=== PATIENT | male | born 1955 | race African-American/Black ===

== ENCOUNTER 2016-11-26 04:47 | Emergency (ER) | payer MEDICAID ==
[2016-11-26] MEDS ORDERED: SULFAMETHOXAZOLE/TRIMETHOPRIM 800-160 MG TABLET PO ONE (06:38)
[2016-11-26] MEDS ORDERED: PREDNISONE 20 MG TABLET PO ONE (06:38)
[2016-11-26] MEDS ORDERED: CEPHALEXIN 500 MG CAPSULE PO ONE (06:38)
--- NOTE | 2016-11-26 06:40 | ER Document Report ---
ED General - General Chief Complaint: Allergic Reaction Stated Complaint: POSSIBLE RASH Time Seen by Provider: 11/26/16 06:07 Mode of Arrival: Ambulatory Information source: Patient Notes: 61-year-old male presents with complaints of rash to face and the right leg. Patient notes he has a history of eczema and has been scratching at it. Now he notes over the past few days that there has been crusty martinez this from around the face lips. Patient denies any fevers or chills TRAVEL OUTSIDE OF THE [place] IN LAST 30 DAYS: No - HPI Onset: Just prior to arrival Onset/Duration: Sudden Quality of pain: No pain Severity: Mild Pain Level: Denies Associated symptoms: Other Exacerbated by: Denies Relieved by: Denies Similar symptoms previously: No Recently seen / treated by doctor: No - Related Data Allergies/Adverse Reactions: No Known Allergies Allergy (Unverified 11/26/16 04:56) Past Medical History - Social History Smoking Status: Never Smoker Cigarette use (# per day): No Chew tobacco use (# tins/day): No Smoking Education Provided: No Family History: Reviewed & Not Pertinent Patient has suicidal ideation: No Patient has homicidal ideation: No - Past Medical History Cardiac Medical History: Reports: Hx Hypertension Renal/ Medical History: Denies: Hx Peritoneal Dialysis Past Surgical History: Reports: Hx Cardiac Surgery - bypass Review of Systems - Review of Systems Notes: REVIEW OF SYSTEMS: CONSTITUTIONAL : Denies fever, chills, or sweats. Denies recent illness. EENT: Denies eye, ear, throat, or mouth pain or symptoms. Denies nasal or sinus congestion or discharge. Denies throat, tongue, or mouth swelling or difficulty swallowing. CARDIOVASCULAR: Denies chest pain. Denies palpitations or racing or irregular heart beat. Denies ankle edema. RESPIRATORY: Denies cough, cold, or chest congestion. Denies shortness of breath, difficulty breathing, or wheezing. GASTROINTESTINAL: Denies abdominal pain or distention. Denies nausea, vomiting , or diarrhea. Denies blood in vomitus, stools, or per rectum. Denies black, tarry stools. Denies constipation. GENITOURINARY: Denies difficulty urinating, painful urination, burning, frequency, blood in urine, or discharge. MUSCULOSKELETAL: Denies back or neck pain or stiffness. Denies joint pain or swelling. SKIN: Admits to rash HEMATOLOGIC : Denies easy bruising or bleeding. LYMPHATIC: Denies swollen, enlarged glands. NEUROLOGICAL: Denies confusion or altered mental status. Denies passing out or loss of consciousness. Denies dizziness or lightheadedness. Denies headache. Denies weakness or paralysis or loss of use of either side. Denies problems with gait or speech. Denies sensory loss, numbness, or tingling. Denies seizures. PSYCHIATRIC: Denies anxiety or stress. Denies depression, suicidal ideation, or homicidal ideation. ALL OTHER SYSTEMS REVIEWED AND NEGATIVE. Dictation was performed using [employer] recognition software PHYSICAL EXAMINATION: GENERAL: Well-appearing, well-nourished and in no acute distress. HEAD: Atraumatic, normocephalic. EYES: Pupils equal round and reactive to light, extraocular movements intact, sclera anicteric, conjunctiva are normal. ENT: Nares patent, oropharynx clear without exudates. Moist mucous membranes. NECK: Normal range of motion, supple without lymphadenopathy LUNGS: Breath sounds clear to auscultation bilaterally and equal. No wheezes rales or rhonchi. HEART: Regular rate and rhythm without murmurs ABDOMEN: Soft, nontender, nondistended abdomen. No guarding, no rebound. No masses appreciated. Musculoskeletal: Normal range of motion, no pitting or edema. No cyanosis. NEUROLOGICAL: Cranial nerves grossly intact. Normal speech, normal gait. Normal sensory, motor exams PSYCH: Normal mood, normal affect. SKIN: martinez crusted rash on face , right anterior leg Physical Exam - Vital signs Vitals: Temp Pulse Resp BP Pulse Ox 98.1 F 85 18 148/117 H 98 11/26/16 04:52 11/26/16 04:52 11/26/16 04:52 11/26/16 04:52 11/26/16 04:52 Course - Re-evaluation Re-evalutation: 11/26/16 11:05 Patient has obvious staph rash, will be started on antibiotics otherwise well- appearing no distress Patient was also being treated for his eczema which I believe he has been scratching and causing infectious process After performing a Medical Screening Examination, I estimate there is LOW risk for OPEN FRACTURE, COMPARTMENT SYNDROME, TENDON RUPTURE, ACUTE NEUROVASCULAR INJURY, or RETAINED FOREIGN BODY, thus I consider the discharge disposition reasonable. Also, there is no evidence or peritonitis, sepsis, or toxicity. I have reevaluated this patient multiple times and no significant life threatening changes are noted. The patient and I have discussed the diagnosis and risks, and we agree with discharging home with close follow-up with the understanding that symptoms and presentations can change. We also discussed returning to the Emergency Department immediately if new or worsening symptoms occur. We have discussed the symptoms which are most concerning (e.g., changing or worsening pain, fever, numbness, weakness, cool or painful digits) that necessitate immediate return. - Vital Signs Vital signs: Temp Pulse Resp BP Pulse Ox 98.8 F 87 16 151/100 H 99 11/26/16 07:03 11/26/16 07:03 11/26/16 07:03 11/26/16 07:03 11/26/16 07:03 Discharge - Discharge Clinical Impression: Cellulitis Qualifiers: Site of cellulitis: face Qualified Code(s): L03.211 - Cellulitis of face Eczema Qualifiers: Eczema type: unspecified Qualified Code(s): L30.9 - Dermatitis, unspecified Condition: Stable Disposition: HOME, SELF-CARE Instructions: Cellulitis ([facility]) Additional Instructions: Please follow up with your pcp in 1-2 days for reevaluation or return immediately if there are any other concerns Prescriptions: Cephalexin Monohydrate [Keflex 500 mg Capsule] 500 mg PO QID #40 capsule Prednisone 60 mg PO DAILY 5 Days tablet Sulfamethoxazole/Trimethoprim [Bactrim Ds Tablet] 2 each PO BID 10 Days tablet
[2016-11-26 07:04] VITALS: BP 151/100
== END 2016-11-26 07:05 | disposition home or self-care (01) ==
LOC: ER 04:47
DX: L03.211 Cellulitis of face (principal); L30.9 Dermatitis, unspecified; I10 Essential (primary) hypertension; Z95.1 Presence of aortocoronary bypass graft
CPT/HCPCS: 99283; J7512

== ENCOUNTER 2016-12-07 15:54 | Emergency (ER) | payer MEDICAID ==
[2016-12-07] MEDS ORDERED: ASPIRIN 81 MG TABLET, CHEWABLE PO ONE ×2 (16:34→20:00)
--- NOTE | 2016-12-07 16:35 | ER Document Report ---
ED Medical Screen (RME) - General Chief Complaint: Chest Pain Stated Complaint: CHEST PAIN Time Seen by Provider: 12/07/16 16:33 Notes: Patient reports 1 day of intermittent chest pain. He states the pain lasted 15- 20 minutes at a time. No current pain. He states he does have a history of open heart surgery about 5 years ago. He states he does not take an aspirin a day. He states he still smokes and drinks. TRAVEL OUTSIDE OF THE [place] IN LAST 30 DAYS: No - Related Data Allergies/Adverse Reactions: No Known Allergies Allergy (Unverified 11/26/16 04:56) Past Medical History - Past Medical History Cardiac Medical History: Reports: Hx Hypertension Renal/ Medical History: Denies: Hx Peritoneal Dialysis Past Surgical History: Reports: Hx Cardiac Surgery - bypass Physical Exam - Vital signs Vitals: Temp Pulse Resp BP Pulse Ox 98.5 F 71 18 166/108 H 98 12/07/16 16:08 12/07/16 16:08 12/07/16 16:08 12/07/16 16:08 12/07/16 16:08 Course - Vital Signs Vital signs: Temp Pulse Resp BP Pulse Ox 98.5 F 71 18 166/108 H 98 12/07/16 16:08 12/07/16 16:08 12/07/16 16:08 12/07/16 16:08 12/07/16 16:08
[2016-12-07 17:10] LABS: ABSOLUTE BASOPHILS # (AUTO) 0.1 10^3/uL (0.0-0.2); ABSOLUTE EOSINOPHILS # (AUTO) 0.1 10^3/uL (0.0-0.6); ABSOLUTE LYMPHOCYTES (AUTO) 2.3 10^3/uL (0.5-4.7); ABSOLUTE MONOCYTES (AUTO) 0.8 10^3/uL (0.1-1.4); ABSOLUTE NEUT (AUTO) 3.1 10^3/uL (1.7-8.2); BASOPHILS % (AUTO) 1.1 % (0-2); EOSINOPHILS % (AUTO) 1.8 % (0-6); HEMATOCRIT 40.9 % (37.9-51.0); HEMOGLOBIN 13.8 g/dL (13.5-17.0); HGB HCT DIFFERENCE 0.5; LYMPHOCYTES % (AUTO) 35.6 % (13-45); MEAN CORPUSCULAR HEMOGLOBIN 27.1 pg (27.0-33.4); MEAN CORPUSCULAR HGB CONC 33.8 g/dL (32.0-36.0); MEAN CORPUSCULAR VOLUME 80 fl (80-97); MONOCYTES % (AUTO) 12.9 % (3-13); RED CELL DISTRIBUTION WIDTH 15.6 % (11.5-14.0); SEGMENTED NEUTROPHILS % (AUTO) 48.6 % (42-78); WHITE BLOOD COUNT 6.4 10^3/uL (4.0-10.5)
--- NOTE | 2016-12-07 17:31 | RADIOLOGY REPORT (SQ) ---
EXAM DESCRIPTION: CHEST PA/LAT COMPLETED DATE/TIME: 12/07/2016 5:20 pm REASON FOR STUDY: cp COMPARISON: None. EXAM PARAMETERS: NUMBER OF VIEWS: two views TECHNIQUE: Digital Frontal and Lateral radiographic views of the chest acquired. RADIATION DOSE: NA LIMITATIONS: none FINDINGS: LUNGS AND PLEURA: No opacities, masses or pneumothorax. No pleural effusion. MEDIASTINUM AND HILAR STRUCTURES: No masses or contour abnormalities. HEART AND VASCULAR STRUCTURES: Heart normal size. No evidence for failure. BONES: No acute findings. HARDWARE: Sternotomy wires. Heart valve. OTHER: No other significant finding. IMPRESSION: NO SIGNIFICANT RADIOGRAPHIC FINDING IN THE CHEST. TECHNICAL DOCUMENTATION: JOB ID: [id number] [employer]- All Rights Reserved
[2016-12-07 17:37] LABS: ALANINE AMINOTRANSFERASE 53 U/L (21-72); ALBUMIN 4.6 g/dL (3.5-5.0); ALKALINE PHOSPHATASE 76 U/L (38-126); ANION GAP 14 (5-19); ASPARTATE AMINO TRANSFERASE 33 U/L (17-59); BILIRUBIN,DIRECT 0.3 mg/dL (0.0-0.4); BILIRUBIN,TOTAL 0.3 mg/dL (0.2-1.3); BLOOD UREA NITROGEN 15 mg/dL (7-20); CALCIUM 9.8 mg/dL (8.4-10.2); CARBON DIOXIDE 26 mmol/L (22-30); CHLORIDE 100 mmol/L (98-107); CREATININE RESULT 1.44 mg/dL (0.52-1.25); GLUCOSE 93 mg/dL (75-110); POTASSIUM 4.8 mmol/L (3.6-5.0); SODIUM 139.9 mmol/L (137-145); TOTAL PROTEIN 7.4 g/dL (6.3-8.2)
[2016-12-07] MEDS ORDERED: ATORVASTATIN CALCIUM 80 MG TABLET PO ONE (20:25)
[2016-12-07] MEDS ORDERED: NITROGLYCERIN 0.4 MG/TAB 25 TAB/BOTTLE SL PRN (20:25)
--- NOTE | 2016-12-07 20:29 | ER Document Report ---
ED General - General Chief Complaint: Chest Pain Stated Complaint: CHEST PAIN Time Seen by Provider: 12/07/16 16:33 Notes: Patient is a 61-year-old male with a past medical history of coronary artery disease status post 3 stents as well as a coronary bypass, hypertension, hyperlipidemia, active tobacco use, who presents with 24 hours of intermittent chest pain. He does describe this as a retrosternal chest pain that is a pressure-like sensation that lasts for approximately 20-30 minutes. This pain is associated with shortness of breath, diaphoresis and he vomits each time it occurs. Nothing seems to trigger the pain and it does resolve on its own. States that this pain does feel somewhat similar to when he had to have stents placed in the past. He does admit that the only medications he is currently taking are for high blood pressure and he has not been taking aspirin, statins, or any other prior medications that he was taking prior to moving to the [facility] ER. He has not seen his primary care doctor regarding today's concerns. He denies any chest pain at time of my assessment. TRAVEL OUTSIDE OF THE [place] IN LAST 30 DAYS: No - Related Data Allergies/Adverse Reactions: No Known Allergies Allergy (Unverified 11/26/16 04:56) Past Medical History - General Information source: Patient - Social History Smoking Status: Current Every Day Smoker Frequency of alcohol use: Social Drug Abuse: None Lives with: Family Family History: Reviewed & Not Pertinent Patient has suicidal ideation: No Patient has homicidal ideation: No - Past Medical History Cardiac Medical History: Reports: Hx Hypertension Renal/ Medical History: Denies: Hx Peritoneal Dialysis Past Surgical History: Reports: Hx Cardiac Surgery - bypass Review of Systems - Review of Systems Notes: Constitutional: Negative for fever. HENT: Negative for sore throat. Eyes: Negative for visual changes. Cardiovascular: Positive for chest pain. Respiratory: Positive for shortness of breath. Gastrointestinal: Negative for abdominal pain, positive for vomiting. Genitourinary: Negative for dysuria. Musculoskeletal: Negative for back pain. Skin: Negative for rash. Neurological: Negative for headaches, weakness or numbness. 10 point ROS negative except as marked above and in HPI. Physical Exam - Vital signs Vitals: Temp Pulse Resp BP Pulse Ox 98.5 F 71 18 166/108 H 98 12/07/16 16:08 12/07/16 16:08 12/07/16 16:08 12/07/16 16:08 12/07/16 16:08 Interpretation: Hypertensive Notes: PHYSICAL EXAMINATION: GENERAL: Well-appearing, well-nourished and in no acute distress. HEAD: Atraumatic, normocephalic. EYES: Pupils equal round and reactive to light, extraocular movements intact, sclera anicteric, conjunctiva are normal. ENT: nares patent, oropharynx clear without exudates. Moist mucous membranes. NECK: Normal range of motion, supple without lymphadenopathy LUNGS: Breath sounds clear to auscultation bilaterally and equal. No wheezes rales or rhonchi. HEART: Regular rate and rhythm without murmurs ABDOMEN: Soft, nontender, normoactive bowel sounds. No guarding, no rebound. No masses appreciated. EXTREMITIES: Normal range of motion, no pitting or edema. No cyanosis. NEUROLOGICAL: No focal neurological deficits. Moves all extremities spontaneously and on command. PSYCH: Normal mood, normal affect. SKIN: Warm, Dry, normal turgor, no rashes or lesions noted. Course - Re-evaluation Re-evalutation: 12/07/16 20:27 Patient presents with a worrisome chest pain history of intermittent retrosternal pressure in the center of his chest without radiation of the pain with associated diaphoresis, vomiting and shortness of breath. Patient does have extensive coronary artery disease history with both bypass and stenting in the past. It does appear the patient may be noncompliant with medications as he states he supposed to be taking aspirin as well as several other medications with the only medication he takes is for blood pressure. He did not have any chest pain at time of my assessment and his pain has resolved spontaneously. Unfortunately his troponin is elevated at 0.284 indicating likely a NSTEMI. His EKG does show mild ST depressions in V4 5 less than 0.25 mm. Patient will require transfer and I have contacted [facility] for consideration of transfer. 2250-patient remains without chest pain. Repeat troponin has continued to elevate. Transport crew has arrived for patient transfer. Patient is stable and appropriate for transfer at this time. - Vital Signs Vital signs: Temp Pulse Resp BP Pulse Ox 97.8 F 79 16 161/95 H 100 12/07/16 22:18 12/07/16 22:13 12/07/16 22:31 12/07/16 22:31 12/07/16 22:31 - Laboratory Result Diagrams: 12/07/16 16:45 12/07/16 16:45 Laboratory results interpreted by me: 12/07/16 12/07/16 12/07/16 16:45 16:45 22:00 RDW 15.6 H Creatinine 1.44 H Est GFR (Non-Af Amer) 50 L Ur Leukocyte Esterase LARGE H - Diagnostic Test Radiology reviewed: Image reviewed, Reports reviewed Radiology results interpreted by me: 12/08/16 03:44 Chest x-ray: No acute infiltrate or pneumothorax - EKG Interpretation by Me Additional EKG results interpreted by me: 12/08/16 03:46 Normal sinus rhythm. Rate 87. No ST elevations or depressions. Mild ST depression 0.25 mm in the 5 and 6. Discharge - Discharge Clinical Impression: NSTEMI (non-ST elevated myocardial infarction) Condition: Fair Disposition: [facility]
[2016-12-07] MEDS ORDERED: ENOXAPARIN SODIUM INJ 80 MG/0.8 ML DISP.SYRIN SUBCUT SCH (22:00)
[2016-12-07 22:39] LABS: APPEARANCE,URINE CLOUDY; BILIRUBIN,URINE NEGATIVE (NEGATIVE); GLUCOSE, URINE NEGATIVE (NEGATIVE); KETONES,URINE NEGATIVE (NEGATIVE); LEUKOCYTE ESTERASE,URINE LARGE (NEGATIVE); NITRITE,URINE NEGATIVE (NEGATIVE); PROTEIN,URINE NEGATIVE (NEGATIVE); URINE SPECIFIC GRAVITY 1.016; UROBILINOGEN,URINE NEGATIVE mg/dL (<2.0)
[2016-12-07 22:42] VITALS: BP 161/95
== END 2016-12-07 23:00 | disposition short-term general hospital (02) ==
LOC: ER 15:54
DX: I21.4 Non-ST elevation (NSTEMI) myocardial infarction (principal); I10 Essential (primary) hypertension; R06.02 Shortness of breath; R11.10 Vomiting, unspecified; R61 Generalized hyperhidrosis; I25.2 Old myocardial infarction; F17.200 Nicotine dependence, unspecified, uncomplicated; Z95.5 Presence of coronary angioplasty implant and graft; Z95.1 Presence of aortocoronary bypass graft; Z79.899 Other long term (current) drug therapy
CPT/HCPCS: 99285; 96372; 36415; 85025; 80053; 81001; 84484; 71020; J1650

== ENCOUNTER 2018-07-31 11:48 | Observation (INO) | payer MEDICARE ==
[2018-07-31] MEDS ORDERED: LIDOCAINE 2% JELLY 30 ML TUBE TOP ONE (12:12)
--- NOTE | 2018-07-31 12:13 | ER Document Report ---
ED Medical Screen (RME) - General Chief Complaint: Hemorrhoids Stated Complaint: LOWER ABDOMINAL PAIN Time Seen by Provider: 07/31/18 12:11 TRAVEL OUTSIDE OF THE [place] IN LAST 30 DAYS: No - HPI Notes: 07/31/18 12:12 Patient is a 62-year-old male who presents complaining of hemorrhoids that are very large and painful that have been present for the past 5 days. Patient states he has been taking laxatives just to try to have bowel movement without pain. Patient states that he was told that he needed some cut open in the past. He is otherwise able to eat and drink without difficulty. He is urinating normally. No other concerns or complaints. Denies ENG, fever, neck pain, URI, CP, SOB, Abd pain, dysuria, back pain, or rash. Patient will be placed in gown for further evaluation for possible I&D of hemorrhoid(s). I have treated and performed a rapid initial assessment of this patient. A comprehensive ED assessment and evaluation of the patient, analysis of test results and completion of medical decision making process will be conducted by additional ED providers. PHYSICAL EXAMINATION: GENERAL: Well-appearing, well-nourished and in no acute distress. A&Ox4. Answers questions appropriately. LUNGS: Breath sounds clear to auscultation bilaterally and equal. No wheezes rales or rhonchi. HEART: Regular rate and rhythm without murmurs, rubs, gallops. - Related Data Allergies/Adverse Reactions: No Known Allergies Allergy (Verified 07/31/18 11:49) Past Medical History - Social History Chew tobacco use (# tins/day): No Frequency of alcohol use: Heavy Drug Abuse: Marijuana - Past Medical History Cardiac Medical History: Reports: Hx Heart Attack, Hx Hypertension Renal/ Medical History: Denies: Hx Peritoneal Dialysis Past Surgical History: Reports: Hx Cardiac Surgery - bypass stent 12/09/16 Physical Exam - Vital signs Vitals: Temp Pulse Resp BP Pulse Ox 97.6 F 72 18 173/78 H 99 07/31/18 11:55 07/31/18 11:55 07/31/18 11:55 07/31/18 11:55 07/31/18 11:55 Course - Vital Signs Vital signs: Temp Pulse Resp BP Pulse Ox 97.6 F 72 18 173/78 H 99 07/31/18 11:55 07/31/18 11:55 07/31/18 11:55 07/31/18 11:55 07/31/18 11:55
[2018-07-31] MEDS ORDERED: KETOROLAC TROMETHAMINE INJ/PF 30 MG/1 ML SDV IV ONE (15:29)
[2018-07-31 16:59] LABS: ABSOLUTE EOSINOPHILS # (AUTO) 0.1 10^3/uL (0.0-0.6); ABSOLUTE LYMPHOCYTES (AUTO) 1.9 10^3/uL (0.5-4.7); ABSOLUTE MONOCYTES (AUTO) 1.1 10^3/uL (0.1-1.4); ABSOLUTE NEUT (AUTO) 8.1 10^3/uL (1.7-8.2); BASOPHILS % (AUTO) 0.4 % (0-2); EOSINOPHILS % (AUTO) 0.7 % (0-6); HEMATOCRIT 43.2 % (37.9-51.0); HEMOGLOBIN 14.5 g/dL (13.5-17.0); LYMPHOCYTES % (AUTO) 16.7 % (13-45); MEAN CORPUSCULAR HGB CONC 33.6 g/dL (32.0-36.0); MEAN CORPUSCULAR VOLUME 80 fl (80-97); MONOCYTES % (AUTO) 9.6 % (3-13); PLATELET COUNT 196 10^3/uL (150-450); RED BLOOD COUNT 5.38 10^6/uL (4.35-5.55); RED CELL DISTRIBUTION WIDTH 15.1 % (11.5-14.0); SEGMENTED NEUTROPHILS % (AUTO) 72.6 % (42-78); TOTAL CELLS COUNTED % (AUTO) 100 %; WHITE BLOOD COUNT 11.2 10^3/uL (4.0-10.5)
[2018-07-31 17:04] LABS: INTERNATIONAL RATION (INR) 0.95; PROTHROMBIN TIME 13.2 SEC (11.4-15.4)
[2018-07-31 17:05] LABS: PARTIAL THROMBOPLASTIN TIME 29.1 SEC (23.5-35.8)
[2018-07-31 17:14] LABS: ALANINE AMINOTRANSFERASE 27 U/L (21-72); ALBUMIN 4.9 g/dL (3.5-5.0); ALKALINE PHOSPHATASE 84 U/L (38-126); ANION GAP 13 (5-19); ASPARTATE AMINO TRANSFERASE 26 U/L (17-59); BILIRUBIN,DIRECT 0.4 mg/dL (0.0-0.4); BILIRUBIN,TOTAL 0.8 mg/dL (0.2-1.3); BLOOD UREA NITROGEN 14 mg/dL (7-20); CALCIUM 10.2 mg/dL (8.4-10.2); CARBON DIOXIDE 25 mmol/L (22-30); CHLORIDE 100 mmol/L (98-107); GLUCOSE 90 mg/dL (75-110); POTASSIUM 4.3 mmol/L (3.6-5.0); SODIUM 138.2 mmol/L (137-145); TOTAL PROTEIN 8.1 g/dL (6.3-8.2)
[2018-07-31] MEDS ORDERED: LIDOCAINE 2% URO-JET 5 ML KIT MM ONE (17:53)
--- NOTE | 2018-07-31 18:03 | RADIOLOGY REPORT (SQ) ---
EXAM DESCRIPTION: CT PELVIS WITH COMPLETED DATE/TIME: 07/31/2018 5:38 pm REASON FOR STUDY: likely perirectal abscess COMPARISON: None. TECHNIQUE: CT scan of the pelvis performed without intravenous or oral contrast. Images reviewed wi th soft tissue and bone windows. Reconstructed coronal and sagittal MPR images reviewed. All images stored on PACS. All CT scanners at this facility use dose modulation, iterative reconstruction, and/or weight based d osing when appropriate to reduce radiation dose to as low as reasonably achievable (ALARA). [facility]: Dose Right [facility]: CareDose [facility]: Dose Right [facility]: Teradose 4D [facility]: [employer] RADIATION DOSE: CT Rad equipment meets quality standard of care and radiation dose reduction techniq ues were employed. CTDIvol: 12.1 mGy. DLP: 429 mGy-cm. mGy. LIMITATIONS: None. FINDINGS: PELVIC BONES/HIP(S): Severe degenerative arthritis of both hips with subchondral cystic c hange and cortical irregularity of the femoral heads. Subchondral cystic change and osteophytic coles ge at the acetabuli. The possibility of avascular necrosis of the hips particularly on the left coul d not be excluded. VISUALIZED SPINE: There is evidence of lumbar spondylosis. Degenerative disc disease at L5-S1. PELVIC SOFT TISSUES: :. PROSTATE/ SEMINAL VESICLES: Prostatomegaly. LARGE AND SMALL BOWEL: Colonic diverticulosis. There is evidence of an abscess collection in the ri ght perianal region with air and fluid noted measuring 3.8(AP) x 1.7(T) x 4.2 (H)cm EXTRAPELVIC SOFT TISSUES: Bilateral inguinal nodes noted. Ngs. IMPRESSION: 1. Changes of a 3.8 x 1.7 x 4.2 cm right perianal abscess. 2. [id number]. 3. Se naresh degenerative arthritis of both hips. The possibility of avascular necrosis could not be exclude d .. TECHNICAL DOCUMENTATION: JOB ID: [id number] Quality ID # [id number]: Final reports with documentation of one or more dose reduction techniques (e.g., Au tomated exposure control, adjustment of the mA and/or kV according to patient size, use of iterative reconstruction technique) 2010 [employer]- All Rights Reserved Reading location - IP/workstation name: [email or web address]
[2018-07-31] MEDS ORDERED: METRONIDAZOLE 500 MG/NS RTU 500 MG/100 ML RTUPB IV ONE (18:46)
--- NOTE | 2018-07-31 18:49 | ER Document Report ---
Entered by CLAUDINE WYNN SCRIBE 07/31/18 1533 Acting as scribe for:DES LUGO DO ED General - General Chief Complaint: Hemorrhoids Stated Complaint: LOWER ABDOMINAL PAIN Time Seen by Provider: 07/31/18 12:11 Mode of Arrival: Ambulatory Information source: Patient Notes: Patient is a 62 year old male with a history of hemorrhoids presents to the emergency department complaining of rectal pain onset 6 days ago. Patient states he believes he currently has a hemorrhoids and reports exacerbation of pain with bowel movements and walking. He also complains of a small amount of rectal bleeding. Patient states he has used suppositories and Preparation H with no r elief. TRAVEL OUTSIDE OF THE [place] IN LAST 30 DAYS: No - Related Data Allergies/Adverse Reactions: No Known Allergies Allergy (Verified 07/31/18 11:49) Past Medical History - General Information source: Patient - Social History Smoking Status: Never Smoker Cigarette use (# per day): No Chew tobacco use (# tins/day): No Frequency of alcohol use: Heavy Drug Abuse: Marijuana Family History: Reviewed & Not Pertinent Patient has suicidal ideation: No Patient has homicidal ideation: No - Past Medical History Cardiac Medical History: Reports: Hx Heart Attack, Hx Hypertension Past Surgical History: Reports: Hx Cardiac Surgery - bypass stent 12/09/16 Review of Systems - Review of Systems Constitutional: No symptoms reported EENT: No symptoms reported Cardiovascular: No symptoms reported Respiratory: No symptoms reported Gastrointestinal: See HPI Genitourinary: No symptoms reported Male Genitourinary: No symptoms reported Musculoskeletal: No symptoms reported Skin: No symptoms reported Hematologic/Lymphatic: No symptoms reported Neurological/Psychological: No symptoms reported -: Yes All other systems reviewed and negative Physical Exam - Vital signs Vitals: Temp Pulse Resp BP Pulse Ox 97.6 F 72 18 173/78 H 99 07/31/18 11:55 07/31/18 11:55 07/31/18 11:55 07/31/18 11:55 07/31/18 11:55 - Notes Notes: GENERAL: Alert, interacts well. No acute distress. HEAD: Normocephalic, atraumatic. EYES: Pupils equal, round, and reactive to light. Extraocular movements intact. ENT: Oral mucosa moist, tongue midline. NECK: Full range of motion. Supple. Trachea midline. LUNGS: Clear to auscultation bilaterally, no wheezes, rales, or rhonchi. No respiratory distress. HEART: Regular rate and rhythm. No murmurs, gallops, or rubs. ABDOMEN: Soft, non-tender. Non-distended. Bowel sounds present in all 4 quadrants. No guarding, rigidity, or rebound. EXTREMITIES: Moves all 4 extremities spontaneously. NEUROLOGICAL: Alert and oriented x3. Normal speech. PSYCH: Normal affect, normal mood. SKIN: Warm, dry. RECTAL: There is an area of tender induration at approximately the 3 o'clock position, there is a small break in skin, no active draining, suspicious of perirectal abscess. Course - Re-evaluation Re-evalutation: 07/31/18 18:40 CBC shows mild leukocytosis at 11.2, coags normal, CMP unremarkable, physical exam is concerning for perirectal abscess, but this is not obvious so CT scan was ordered and it showed a 3.8 x 1.7 x 4.2 cm right perianal abscess. I did call and discussed this with the surgeon on-call Dr. Case as I am rather uncomfortable performing incision and drainage so close to the anal verge. He will come down and evaluate the patient. 07/31/18 18:48 Dr. Case agrees that this will need to go to the OR, patient will be admitted to his service, placed on IV antibiotics and operation will happen tomorrow. - Vital Signs Vital signs: Temp Pulse Resp BP Pulse Ox 97.6 F 72 18 173/78 H 99 07/31/18 11:55 07/31/18 11:55 07/31/18 11:55 07/31/18 11:55 07/31/18 11:55 - Laboratory Result Diagrams: 07/31/18 16:45 07/31/18 16:45 Laboratory results interpreted by me: 07/31/18 16:45 WBC 11.2 H RDW 15.1 H Discharge - Discharge Clinical Impression: Perianal abscess Condition: Stable Disposition: ADMITTED INPATIENT Admitting Provider: Surgicalist Iftikhar Case Unit Admitted: Surgical Floor I personally performed the services described in the documentation, reviewed and edited the documentation which was dictated to the scribe in my presence, and it accurately records my words and actions.
[2018-07-31] MEDS ORDERED: MORPHINE SULFATE 10 MG/ML INJ IV PRN (19:24)
[2018-07-31] MEDS ORDERED: DEXTROSE 50%-WATER 25 GM/50 ML DISP.SYRIN IV PRN ×2 (19:24)
[2018-07-31] MEDS ORDERED: DEXTROSE 40% GEL 15 GM TUBE PO PRN ×2 (19:24)
[2018-07-31] MEDS ORDERED: ONDANSETRON HCL INJ/PF 4 MG/2 ML SDV IV PRN (19:24)
[2018-07-31] MEDS ORDERED: POTASSI CL 20 MEQ/1/2NS 1L 20 MEQ/1,000 ML RTUINJ IV PRN (19:24)
[2018-07-31] MEDS ORDERED: GLUCAGON,HUMAN RECOMB 1 MG INJ SUBCUT PRN (19:24)
--- NOTE | 2018-07-31 19:39 | PDOC H&P ---
History of Present Illness Admission Date/PCP: 07/31/18 18:51 Patient complains of: Rectal pain and swelling History of Present Illness: NICK LEE is a 62 year old male with a 2-day history of increasing rectal pain and swelling. The patient denies any fevers or chills. He denies any purulent drainage. He reports difficulty with defecation. He denies any active rectal bleeding. The patient rates his pain is 8 out of 10. It does not radiate. It is sharp and stabbing. The patient denies chest pain, shortness of breath, nausea, vomiting, melena, hematochezia, abdominal pain, fatigue, malaise, orthostasis, dizziness, blurry vision, sore throat, rash. Past Medical History Cardiac Medical History: Reports: Myocardial Infarction, Hypertension Past Surgical History Past Surgical History: Reports: Other - Porcine cardiac valve replacement Social History Smoking Status: Never Smoker Frequency of Alcohol Use: Heavy Hx Recreational Drug Use: Yes Drugs: Marijuana Family History Family History: Reviewed & Not Pertinent Parental Family History Reviewed: Yes Children Family History Reviewed: Yes Sibling(s) Family History Reviewed.: Yes Medication/Allergy Home Medications: Lisinopril 20 mg PO DAILY 07/31/18 Allergies/Adverse Reactions: No Known Allergies Allergy (Verified 07/31/18 11:49) Review of Systems Constitutional: ABSENT: anorexia, chills, fatigue, fever(s) Eyes: ABSENT: visual disturbances Nose, Mouth, and Throat: ABSENT: mouth pain, sore throat Cardiovascular: ABSENT: chest pain, dyspnea on exertion Respiratory: ABSENT: cough Gastrointestinal: PRESENT: other - Rectal pain and swelling. ABSENT: abdominal pain, bloating, hematemesis, hematochezia, melena, nausea, vomiting Genitourinary: ABSENT: dysuria Musculoskeletal: ABSENT: back pain Integumentary: ABSENT: pruritus, rash Neurological: ABSENT: confusion, convulsions, dizziness Psychiatric: ABSENT: anxiety Endocrine: ABSENT: cold intolerance, heat intolerance Hematologic/Lymphatic: ABSENT: easy bleeding Physical Exam Vital Signs: Temp Pulse Resp BP Pulse Ox 97.6 F 72 18 173/78 H 99 07/31/18 11:55 07/31/18 11:55 07/31/18 11:55 07/31/18 11:55 07/31/18 11:55 Intake & Output 07/30/18 07/31/1819 06:59 06:59 06:59 Weight 74.2 kg General appearance: PRESENT: no acute distress, cooperative Head exam: PRESENT: atraumatic, normocephalic Eye exam: PRESENT: EOMI, PERRLA. ABSENT: scleral icterus Mouth exam: PRESENT: moist, neck supple Neck exam: ABSENT: meningismus, tenderness, thyromegaly, tracheal deviation Respiratory exam: PRESENT: clear to auscultation will, unlabored. ABSENT: chest wall tenderness, tachypnea, wheezes Cardiovascular exam: PRESENT: RRR Pulses: PRESENT: normal radial pulses GI/Abdominal exam: PRESENT: soft. ABSENT: distended, rigid, tenderness Rectal exam: PRESENT: normal rectal tone, other - Right lateral fluctuance and tenderness extending from the rectal vault, and involving the sphincter complex Extremities exam: ABSENT: clubbing Musculoskeletal exam: ABSENT: deformity Neurological exam: PRESENT: alert, awake, oriented to person, oriented to place, oriented to time, oriented to situation, CN II-XII grossly intact. ABSENT: motor sensory deficit Psychiatric exam: ABSENT: agitated, anxious, depressed Focused psych exam: ABSENT: delusional Skin exam: ABSENT: cyanosis, erythema, jaundice Results Laboratory Results: 07/31/18 16:45 07/31/18 16:45 07/31/18 07/31/18 16:45 16:45 WBC 11.2 H RBC 5.38 Hgb 14.5 Hct 43.2 MCV 80 MCH 27.0 MCHC 33.6 RDW 15.1 H Plt Count 196 Seg Neutrophils % 72.6 Lymphocytes % 16.7 Monocytes % 9.6 Eosinophils % 0.7 Basophils % 0.4 Absolute Neutrophils 8.1 Absolute Lymphocytes 1.9 Absolute Monocytes 1.1 Absolute Eosinophils 0.1 Absolute Basophils 0.0 Sodium 138.2 Potassium 4.3 Chloride 100 Carbon Dioxide 25 Anion Gap 13 BUN 14 Creatinine 1.01 Est GFR ( Amer) > 60 Est GFR (Non-Af Amer) > 60 Glucose 90 Calcium 10.2 Total Bilirubin 0.8 AST 26 ALT 27 Alkaline Phosphatase 84 Total Protein 8.1 Albumin 4.9 Impressions: Pelvis CT 07/31/18 15:29 IMPRESSION: 1. Changes of a 3.8 x 1.7 x 4.2 cm right perianal abscess. 2. [id number]. 3. Severe degenerative arthritis of both hips. The possibility of avascular necrosis could not be excluded .. Assessment & Plan - Diagnosis (1) Perirectal abscess Is this a current diagnosis for this admission?: Yes - Plan Summary Plan Summary: This is a 62-year-old male with a perirectal abscess. The patient will require operative incision and drainage. Patient has eaten recently. I will admit the patient, place him on intravenous antibiotics, and plan for surgery tomorrow. N.p.o. after midnight. Start Cipro and Flagyl. Risks/benefits discussed, informed consent obtained, and all questions answered.
[2018-07-31] MEDS: CIPROFLOXACIN 400 MG/D5W RTU 400 MG/200 ML RTUPB IV SCH ×2 (19:56→22:02)
[2018-08-01 04:42] LABS: ABSOLUTE EOSINOPHILS # (AUTO) 0.1 10^3/uL (0.0-0.6); ABSOLUTE LYMPHOCYTES (AUTO) 1.9 10^3/uL (0.5-4.7); ABSOLUTE NEUT (AUTO) 4.7 10^3/uL (1.7-8.2); BASOPHILS % (AUTO) 0.4 % (0-2); EOSINOPHILS % (AUTO) 1.7 % (0-6); HEMATOCRIT 39.1 % (37.9-51.0); HEMOGLOBIN 13.2 g/dL (13.5-17.0); MEAN CORPUSCULAR HEMOGLOBIN 27.2 pg (27.0-33.4); MEAN CORPUSCULAR HGB CONC 33.7 g/dL (32.0-36.0); MEAN CORPUSCULAR VOLUME 81 fl (80-97); MONOCYTES % (AUTO) 12.7 % (3-13); PLATELET COUNT 159 10^3/uL (150-450); RED BLOOD COUNT 4.84 10^6/uL (4.35-5.55); RED CELL DISTRIBUTION WIDTH 14.9 % (11.5-14.0); SEGMENTED NEUTROPHILS % (AUTO) 60.2 % (42-78); TOTAL CELLS COUNTED % (AUTO) 100 %; WHITE BLOOD COUNT 7.8 10^3/uL (4.0-10.5)
[2018-08-01 05:04] LABS: ANION GAP 10 (5-19); BLOOD UREA NITROGEN 17 mg/dL (7-20); CALCIUM 9.5 mg/dL (8.4-10.2); CARBON DIOXIDE 26 mmol/L (22-30); CHLORIDE 103 mmol/L (98-107); GLUCOSE 94 mg/dL (75-110); POTASSIUM 4.5 mmol/L (3.6-5.0); SODIUM 138.9 mmol/L (137-145)
--- NOTE | 2018-08-01 07:17 | PDOC PROGRESS REPORT ---
Subjective Progress Note for:: 08/01/18 Subjective:: This is a 62-year-old male with a perirectal abscess. The patient reports that his perirectal abscess is painful. He denies fevers or chills. He denies chest pain, shortness of breath, nausea, vomiting, orthostasis, dizziness, blurry vision Reason For Visit: PERIRECTAL ABSCESS Physical Exam Vital Signs: Temp Pulse Resp BP Pulse Ox 97.7 F 72 18 131/82 H 100 07/31/18 20:30 07/31/18 20:30 07/31/18 20:30 07/31/18 20:30 07/31/18 20:30 Intake & Output 07/31/18 08/01/18 08/02/18 06:59 06:59 06:59 Intake Total 200 Balance 200 Weight 74.2 kg General appearance: PRESENT: no acute distress, cooperative Head exam: PRESENT: atraumatic, normocephalic Eye exam: PRESENT: EOMI, PERRLA Mouth exam: PRESENT: moist, neck supple Neck exam: ABSENT: meningismus, tenderness, thyromegaly, tracheal deviation Respiratory exam: PRESENT: clear to auscultation will Cardiovascular exam: PRESENT: RRR GI/Abdominal exam: PRESENT: soft. ABSENT: distended, tenderness Rectal exam: PRESENT: other - right sided perirectal abscess Extremities exam: ABSENT: clubbing Musculoskeletal exam: ABSENT: deformity Neurological exam: PRESENT: alert, awake, oriented to person, oriented to place Psychiatric exam: ABSENT: agitated, anxious, depressed Focused psych exam: ABSENT: delusional Skin exam: ABSENT: cyanosis, jaundice Results Laboratory Results: 08/01/18 04:00 08/01/18 04:00 07/31/18 07/31/18 08/01/18 16:45 16:45 04:00 WBC 11.2 H 7.8 RBC 5.38 4.84 Hgb 14.5 13.2 L Hct 43.2 39.1 MCV 80 81 MCH 27.0 27.2 MCHC 33.6 33.7 RDW 15.1 H 14.9 H Plt Count 196 159 Seg Neutrophils % 72.6 60.2 Lymphocytes % 16.7 25.0 Monocytes % 9.6 12.7 Eosinophils % 0.7 1.7 Basophils % 0.4 0.4 Absolute Neutrophils 8.1 4.7 Absolute Lymphocytes 1.9 1.9 Absolute Monocytes 1.1 1.0 Absolute Eosinophils 0.1 0.1 Absolute Basophils 0.0 0.0 Sodium 138.2 Potassium 4.3 Chloride 100 Carbon Dioxide 25 Anion Gap 13 BUN 14 Creatinine 1.01 Est GFR ( Amer) > 60 Est GFR (Non-Af Amer) > 60 Glucose 90 Calcium 10.2 Total Bilirubin 0.8 AST 26 ALT 27 Alkaline Phosphatase 84 Total Protein 8.1 Albumin 4.9 08/01/18 04:00 WBC RBC Hgb Hct MCV MCH MCHC RDW Plt Count Seg Neutrophils % Lymphocytes % Monocytes % Eosinophils % Basophils % Absolute Neutrophils Absolute Lymphocytes Absolute Monocytes Absolute Eosinophils Absolute Basophils Sodium 138.9 Potassium 4.5 Chloride 103 Carbon Dioxide 26 Anion Gap 10 BUN 17 Creatinine 1.16 Est GFR ( Amer) > 60 Est GFR (Non-Af Amer) > 60 Glucose 94 Calcium 9.5 Total Bilirubin AST ALT Alkaline Phosphatase Total Protein Albumin Impressions: Pelvis CT 07/31/18 15:29 IMPRESSION: 1. Changes of a 3.8 x 1.7 x 4.2 cm right perianal abscess. 2. [id number]. 3. Severe degenerative arthritis of both hips. The possibility of avascular necrosis could not be excluded .. Assessment & Plan - Diagnosis (1) Perirectal abscess Is this a current diagnosis for this admission?: Yes - Plan Summary Plan Summary: This is a 62-year-old male with a perirectal abscess. I have recommended operative incision and drainage today. The patient has agreed to this. Risks/benefits discussed, informed consent obtained, and all questions answered.
[2018-08-01] MEDS: CIPROFLOXACIN 400 MG/D5W RTU 400 MG/200 ML RTUPB IV SCH (09:02)
[2018-08-01] MEDS: ENOXAPARIN SODIUM INJ 40 MG/0.4 ML DISP.SYRIN SUBCUT SCH (09:07)
[2018-08-01] MEDS ORDERED: SUCCINYLCHOLINE CHLORIDE INJ 200 MG/10 ML VIAL ONE (13:30)
[2018-08-01] MEDS ORDERED: MIDAZOLAM 2 MG/2 ML INJ ONE (14:08)
[2018-08-01] MEDS ORDERED: DEXAMETHASONE SOD PHOSPHATE INJ 4 MG/1 ML VIAL ONE (14:08)
[2018-08-01] MEDS ORDERED: ONDANSETRON HCL INJ/PF 4 MG/2 ML SDV ONE (14:08)
[2018-08-01] MEDS ORDERED: FENTANYL CITRATE INJ/PF 100 MCG/2 ML AMPUL ONE (14:08)
[2018-08-01] MEDS ORDERED: PROPOFOL INJ 200 MG/20 ML VIAL IV ONE (14:09)
[2018-08-01] MEDS ORDERED: NORMAL SALINE 1000 ML 1,000 ML IV PRN (14:40)
[2018-08-01] MEDS ORDERED: BUPIVACAINE HCL 0.25 % INJ/PF (2.5 MG/1 ML) 30 ML VIAL ONE (16:53)
[2018-08-01] MEDS ORDERED: ONDANSETRON HCL INJ/PF 4 MG/2 ML SDV IV PRN (16:57)
[2018-08-01] MEDS ORDERED: MORPHINE SULFATE 10 MG/ML INJ IV PRN (16:57)
[2018-08-01] MEDS ORDERED: MEPERIDINE HCL/PF INJ 25 MG/1 ML DISP.SYRIN IV PRN (16:57)
[2018-08-01] MEDS ORDERED: DIPHENHYDRAMINE HCL 50 MG/ML VIAL IV PRN (16:57)
[2018-08-01] MEDS ORDERED: PROMETHAZINE HCL INJ 25 MG/1 ML VIAL IV PRN ×2 (16:57)
[2018-08-01] MEDS ORDERED: FENTANYL CITRATE INJ/PF 100 MCG/2 ML AMPUL IV PRN ×3 (16:57)
[2018-08-01] MEDS ORDERED: HYDROCODONE/ACETAMINOPHEN 10-325 MG TABLET PO PRN (18:20)
[2018-08-01] MEDS: CIPROFLOXACIN HCL 500 MG TABLET PO SCH (22:29)
[2018-08-01] MEDS: METRONIDAZOLE 500 MG TABLET PO SCH (22:29)
--- NOTE | 2018-08-02 01:36 | Operative Report ---
Nonrecallable Operative Report DATE OF SURGERY: 08/01/18 PREOPERATIVE DIAGNOSIS: Perirectal abscess POSTOPERATIVE DIAGNOSIS: Same as above. OPERATION: Incision and drainage of a perirectal abscess with draining seton placement SURGEON: MERLENE COCHRAN ANESTHESIA: GA TISSUE REMOVED OR ALTERED: None COMPLICATIONS: None apparent ESTIMATED BLOOD LOSS: Minimal PROCEDURE: Drains/implants: Draining seton. Procedure in detail: After informed consent was obtained, the patient was brought into the operating room and laid in the prone jackknife position. The area of the rectum and anus were prepped and draped in a normal sterile fashion. An anal block was created with Marcaine. The external opening of the abscess was easily identified. This was probed with a blunt hemostat. It was found to track in the intersphincteric space proximally. A Hill-Campoverde retractor was used in the rectum to visualize the area. There was a large fluctuant abscess cavity inside the rectum. With some probing, a large amount of purulent material was identified. This was irrigated copiously. The space was then drained using a draining seton. The external opening was extended radially, away from the sphincter complex in order to facilitate drainage. It was difficult to ascertain the exact location of this major complex due to all the induration that was present. It was felt most prudent to avoid fistulectomy at this time. After the draining seton was placed, a dressing was fashioned, and the procedure was concluded. All sponge, instrument, and needle counts were correct. Condition: Stable.
[2018-08-02] MEDS: METRONIDAZOLE 500 MG TABLET PO SCH (06:24)
--- NOTE | 2018-08-02 09:28 | PDOC PROGRESS REPORT ---
Subjective Progress Note for:: 08/02/18 Subjective:: Feels better with less perirectal pain. Reason For Visit: PERIRECTAL ABSCESS Physical Exam Vital Signs: Temp Pulse Resp BP Pulse Ox 98.2 F 61 18 152/96 H 100 08/02/18 07:32 08/02/18 07:32 08/02/18 07:32 08/02/18 07:32 08/02/18 07:32 Intake & Output 08/01/18 08/02/18 08/03/18 06:59 06:59 06:59 Intake Total 200 2220 Output Total 705 Balance 200 1515 Weight 74.2 kg 78.9 kg General appearance: PRESENT: no acute distress Respiratory exam: PRESENT: clear to auscultation will Cardiovascular exam: PRESENT: RRR GI/Abdominal exam: PRESENT: other - Soft, nondistended, nontender to palpation Rectal exam: PRESENT: other - Perianal region with no erythema and minimal tenderness with no significant induration. Seton in place. Wound appears clean. Results Laboratory Results: 08/01/18 04:00 08/01/18 04:00 Impressions: Pelvis CT 07/31/18 15:29 IMPRESSION: 1. Changes of a 3.8 x 1.7 x 4.2 cm right perianal abscess. 2. [id number]. 3. Severe degenerative arthritis of both hips. The possibility of avascular necrosis could not be excluded .. Assessment & Plan - Diagnosis (1) Perirectal abscess Is this a current diagnosis for this admission?: Yes Plan: Status post drainage and seton placement. Patient looks very good. Will discharge patient home.
[2018-08-02] MEDS: CIPROFLOXACIN HCL 500 MG TABLET PO SCH (11:07)
[2018-08-02] MEDS: ENOXAPARIN SODIUM INJ 40 MG/0.4 ML DISP.SYRIN SUBCUT SCH (11:15)
[2018-08-02 12:14] VITALS: BP 131/82
--- NOTE | 2018-08-02 14:49 | DISCHARGE SUMMARY E ---
Discharge Summary NAME: NICK LEE : 1955 AGE: 62Y ADMITTED: 07/31/2018 DISCHARGED: 08/02/2018 FINAL DIAGNOSES: 1. PERIRECTAL ABSCESS. 2. CORONARY ARTERY DISEASE. PROCEDURE PERFORMED DURING HOSPITAL COURSE: PERIRECTAL ABSCESS DRAINAGE WITH SETON PLACEMENT PERFORMED BY DR. CASE ON 08/01/2018. HOSPITAL COURSE: The patient underwent the above-mentioned surgery. He did well postoperatively. He had minimal pain at the surgical site, was feeling much better. The surgical site appeared very clean. There was no bleeding. The patient is now being discharged to home in good condition. He will follow up with Dr. Case next week. He is to call us immediately for bleeding, increased pain, fever, and malaise. He may resume his lisinopril; however, I have asked him to hold his Plavix for three more days. If he does not have bleeding, he may resume his Plavix in three days. The patient does have a history of cardiac stent that was placed a year ago. He does have a history of valve replacement, but it was a porcine valve. Considering the risks and benefits of holding his Plavix after surgery, the above-mentioned plan appears most appropriate. He may follow a cardiac diet. He has minimal discomfort and may take Tylenol for pain. He is to do sitz baths daily and after each bowel movement. DICTATING PHYSICIAN: MANAN SUH M.D. [id number] Y#: [id number] ID: [id number] JOB#: [id number] ACCT: [id number] cc:Emilee HARDY M.D. >
== END 2018-08-02 13:00 | disposition home or self-care (01) ==
LOC: ER 11:48 → INTOOBSV 18:51 → EH 18:51 → 5 20:24
PROVIDERS: ADMIT Surgery; ATTEND Surgery
PROC: 0DQP0ZZ Repair Rectum, Open Approach (ICD-10-PCS; 2018-08-01)
PROC: 0D9P0ZZ Drainage of Rectum, Open Approach (ICD-10-PCS; principal; 2018-08-01 14:45)
DX: K61.1 Rectal abscess (principal); I10 Essential (primary) hypertension; I25.10 Atherosclerotic heart disease of native coronary artery without angina pectoris; I25.2 Old myocardial infarction; Z95.4 Presence of other heart-valve replacement; Z79.899 Other long term (current) drug therapy
CPT/HCPCS: 99285; 96374; 36415 ×2; 85025 ×2; 85610; 85730; 80048; 80053; 72193; 00902; 46020; G0378 ×4; J2250; A9270 ×4; J1100; J3480; J3010; J1885; J3490; J2270; J0330; J2405; J2704; J0744 ×2; 902